=== PATIENT | male | born 1985 | race Caucasian/White ===

== ENCOUNTER 2024-03-08 16:51 | Inpatient (IN) | payer BC, MEDICAID ==
[2024-03-08] MEDS ORDERED: HALOPERIDOL LACTATE 5 MG/ML 1 ML VIAL IM PRN (17:09)
[2024-03-08] MEDS ORDERED: MAGNESIUM HYDROXIDE 2,400 MG/30 ML CUP PO PRN (17:09)
[2024-03-08] MEDS ORDERED: traZODone HCL 50 MG TAB PO PRN (17:09)
[2024-03-08] MEDS ORDERED: LORazepam 2 MG/ML INJ IM PRN (17:09)
[2024-03-08] MEDS ORDERED: haloperidoL 5 MG TAB PO PRN (17:09)
[2024-03-08] MEDS ORDERED: MAG HYDROX/AL HYDROX/SIMETH 355 ML BOTTLE PO PRN (17:09)
--- NOTE | 2024-03-09 02:54 | P.CONS ---
History of Present Illness - Reason for Consult Consult date: 03/08/24 - History of Present Illness The patient is a 38-year-old male who was transferred to the facility from [facility] with the patient was brought in for auditory hallucinations and delusional behavior. The patient was seen in the mental health unit. He reports that he lives with his parents and has been using methamphetamine on and off for the past several years. He also reports smoking 1 pack of cigarettes daily. He denied any physical complaints and denied any chronic medical conditions. Denied experiencing chest discomfort, shortness breath, fever, chills, cough, nausea, vomiting, abdominal pain, diarrhea. Review of systems: Pertinent positives and negatives as discussed in HPI, a complete review of systems was performed and all other systems are negative. Physical examination: General: non toxic, no distress, appears at stated age, obese Derm: no unusual rashes/lesions, no unusual ecchymoses, warm, dry Head: atraumatic, normocephalic, symmetric Eyes: EOMI, no lid lag, anicteric sclera ENT: Nose and ears atraumatic, no thrush, no pharyngeal erythema Neck: trachea midline, supple Mouth: no lip lesion, mucus membranes moist Cardiovascular: S1S2 reg, no murmur, no edema Lungs: CTA bilateral, no rhonchi, no rales , no accessory muscle use Abdominal: soft, nontender to palpation, no guarding Ext: no gross muscle atrophy, no contractures, Neuro: No gross focal neuro deficits noted Psych: Alert, oriented, appropriate affect Assessment: Methamphetamine abuse Tobacco abuse Psychosis Plan: Strongly advised on the importance of cessation from substance use Defer management of psychosis to primary psychiatry service Thank you for allowing us to participate in the care of this patient. We will follow peripherally. Do not hesitate to contact us with questions. Someone can be reached from the [facility] hospitalist group at all hours of the day at [phone]. Past Medical History Additional Past Medical History / Comment(s): ADHD, hx hep C History of Any Multi-Drug Resistant Organisms: None Reported Past Surgical History: No Surgical Hx Reported Past Psychological History: ADD/ADHD, Depression, Schizophrenia Smoking Status: Current every day smoker Past Alcohol Use History: None Reported Past Drug Use History: IV Drug Use, Methamphetamine Additional Drug Use History / Comment(s): daily use Medications and Allergies Home Medications Medication Instructions Recorded Confirmed Type No Known Home Medications 03/09/24 03/09/24 History Allergies Allergy/AdvReac Type Severity Reaction Status Date / Time No Known Allergies Allergy Verified 03/08/24 17:09 Physical Exam Vitals: Vital Signs Temp Pulse Resp Pulse Ox 03/08/24 21:36 98.8 F 75 18 97 Intake and Output 03/08/24 03/08/24 03/09/24 14:59 22:59 06:59 Other: Weight 87.46 kg 87.46 kg
[2024-03-09] MEDS ORDERED: INFLUENZA VACC (6 MOS-64 YRS) 45 MCG/0.5 ML SYRINGE IM ONE (03:12)
[2024-03-09 07:01] VITALS: RESP 16
[2024-03-09 07:55] LABS: Basophils % (A) 1 %; Eosinophils # (A) 0.3 k/uL (0-0.7); Eosinophils % (A) 6 %; HCT 44.7 % (39.0-53.0); Lymphocytes # (A) 1.6 k/uL (1.0-4.8); Lymphocytes % (A) 32 %; MCHC 33.5 g/dL (31.0-37.0); MCV 89.5 fL (80.0-100.0); Mean Platelet Volume 7.7; Monocytes # (A) 0.3 k/uL (0-1.0); Monocytes % (A) 6 %; Neutrophils # (A) 2.8 k/uL (1.3-7.7); Neutrophils % (A) 55 %; Platelet Count 304 k/uL (150-450); RDW 13.6 % (11.5-15.5)
[2024-03-09 08:12] LABS: ALT 14 U/L (4-49); AST 17 U/L (17-59); African American GFR (CKD) >90 (>60 ml/min/1.73 sqM); Albumin 4.1 g/dL (3.5-5.0); Alkaline Phosphatase 74 U/L (38-126); Anion Gap 7 mmol/L; Bilirubin, Delta 0.1 mg/dL (0.0-0.2); Bilirubin,Unconjugated 0.4 mg/dL (0.0-1.1); Blood Urea Nitrogen 18 mg/dL (9-20); Calcium 9.2 mg/dL (8.4-10.2); Carbon Dioxide 24 mmol/L (22-30); Chloride 109 mmol/L (98-107); Glucose 91 mg/dL (74-99); Non-African American GFR(CKD) >90 (>60 ml/min/1.73 sqM); Potassium 4.5 mmol/L (3.5-5.1); Sodium 140 mmol/L (137-145); Total Bilirubin 0.5 mg/dL (0.2-1.3); Total Protein 7.1 g/dL (6.3-8.2)
[2024-03-09] MEDS: NICOTINE 14MG/24HR PATCH TRANSDERM SCH (09:38)
[2024-03-09] MEDS: INFLUENZA VACC (6 MOS-64 YRS) 45 MCG/0.5 ML SYRINGE IM ONE (11:31)
--- NOTE | 2024-03-09 11:45 | P.HP ---
Psychiatric H&P - . H&P Date: 03/09/24 History & Physical: Allergies Allergy/AdvReac Type Severity Reaction Status Date / Time No Known Allergies Allergy Verified 03/08/24 17:09 Vital Signs Temp 97.7 F 03/09/24 06:19 Pulse 62 03/09/24 06:19 Resp 16 03/09/24 06:19 BP 124/70 03/09/24 06:19 Pulse Ox 95 03/09/24 06:19 FiO2 Intake & Output 03/08/24 03/09/24 03/09/24 18:59 06:59 18:59 Weight 78 kg 87.46 kg Laboratory Last Values WBC 5.0 k/uL (3.8-10.6) 03/09/24 07:25 RBC 5.00 m/uL (4.30-5.90) 03/09/24 07:25 Hgb 15.0 gm/dL (13.0-17.5) 03/09/24 07:25 Hct 44.7 % (39.0-53.0) 03/09/24 07:25 MCV 89.5 fL (80.0-100.0) 03/09/24 07:25 MCH 30.0 pg (25.0-35.0) 03/09/24 07:25 MCHC 33.5 g/dL (31.0-37.0) 03/09/24 07:25 RDW 13.6 % (11.5-15.5) 03/09/24 07:25 Plt Count 304 k/uL (150-450) 03/09/24 07:25 MPV 7.7 03/09/24 07:25 Neutrophils % 55 % 03/09/24 07:25 Lymphocytes % 32 % 03/09/24 07:25 Monocytes % 6 % 03/09/24 07:25 Eosinophils % 6 % 03/09/24 07:25 Basophils % 1 % 03/09/24 07:25 Neutrophils # 2.8 k/uL (1.3-7.7) 03/09/24 07:25 Lymphocytes # 1.6 k/uL (1.0-4.8) 03/09/24 07:25 Monocytes # 0.3 k/uL (0-1.0) 03/09/24 07:25 Eosinophils # 0.3 k/uL (0-0.7) 03/09/24 07:25 Basophils # 0.0 k/uL (0-0.2) 03/09/24 07:25 Sodium 140 mmol/L (137-145) 03/09/24 07:25 Potassium 4.5 mmol/L (3.5-5.1) 03/09/24 07:25 Chloride 109 mmol/L (98-107) H 03/09/24 07:25 Carbon Dioxide 24 mmol/L (22-30) 03/09/24 07:25 Anion Gap 7 mmol/L 03/09/24 07:25 BUN 18 mg/dL (9-20) 03/09/24 07:25 Creatinine 0.93 mg/dL (0.66-1.25) 03/09/24 07:25 Est GFR (CKD-EPI)AfAm >90 (>60 ml/min/1.73 sqM) 03/09/24 07:25 Est GFR (CKD-EPI)NonAf >90 (>60 ml/min/1.73 sqM) 03/09/24 07:25 Glucose 91 mg/dL (74-99) 03/09/24 07:[address] Glu mg/dL 114 mg/dL 03/09/24 07:25 Hemoglobin A1c 5.6 % (<=6.0) 03/09/24 07:25 Calcium 9.2 mg/dL (8.4-10.2) 03/09/24 07:25 Total Bilirubin 0.5 mg/dL (0.2-1.3) 03/09/24 07:25 Conjugated Bilirubin 0.0 mg/dL (0.0-0.3) 03/09/24 07:25 Unconjugated Bilirubin 0.4 mg/dL (0.0-1.1) 03/09/24 07:25 Delta Bilirubin 0.1 mg/dL (0.0-0.2) 03/09/24 07:25 AST 17 U/L (17-59) 03/09/24 07:25 ALT 14 U/L (4-49) 03/09/24 07:25 Alkaline Phosphatase 74 U/L (38-126) 03/09/24 07:25 Total Protein 7.1 g/dL (6.3-8.2) 03/09/24 07:25 Albumin 4.1 g/dL (3.5-5.0) 03/09/24 07:25 TSH 1.630 mIU/L (0.465-4.680) 03/09/24 07:25 03/09/24 11:30 IDENTIFYING DATA: Patient is a 38-year-old single male, unemployed and living with parents CHIEF COMPLAINT: Auditory hallucinations, depression HPI: Patient presented to an outside hospital with mental health concerns. Petition written by police department secretary states "Misty suffers from paranoid schizophrenia, was hearing voices, shouting and angry at parents. Misty is delusional and stated he took his medicine but parents that he may not have." Clinical certificate revealed, "patient presents to the ER for paranoid delusions and auditory hallucinations. He is not compliant with psychiatric treatment. Patient lacks insight into all mental health needs." Patient seen and evaluated on the unit and was agreeable with speaking to jingle writer in office. He states being here due to suffering from auditory hallucinations and depression for the past month. He was unable to describe any triggers or stressors however of note patient's UDS was positive for amphetamines. Patient reports experiencing low mood, anhedonia, low energy and poor concentration however denied any sleep or appetite changes. He reports a 1 year history of IV meth use and is reporting withdrawal symptoms described as irritability and fatigue. Patient denies any suicidal or homicidal ideations intent or plan. At this time patient denies any auditory or visual hallucinations. He reports only experiencing auditory hallucinations while at home however states that things are well at home with his parents, no stressors. Patient denies any flight of ideas racing thoughts and increased in goal directed behavior. Patient admits to using meth daily and smoking 10 cigarettes/day. He appears precontemplative as he is not interested in receiving help for his meth use. PAST PSYCHIATRIC HISTORY: Patient has a history of methamphetamine use. Patient denies being on any psychiatric medications. He has tried several psychotropic medications including Prolixin, Abilify, Zyprexa, Remeron, Wellbutrin, Prozac, Depakote, lithium, Trileptal. He reports 5 inpatient hospitalizations, most recent a few months back at [facility]. Patient denies any psychiatric outpatient follow-up. He reports 1 previous suicide attempt roughly 3 months ago via hanging that was aborted PMH: as per ER note ALLERGIES: as per EMR SUBSTANCE USE HISTORY: Patient reports using meth IV daily and smoking cigarettes daily but denies any alcohol use with rare cannabis use. FAMILY PSYCHIATRIC/SUBSTANCE USE HISTORY: Patient reports his sister has depression but denies any family history of substance use or suicide attempts SOCIAL HISTORY: Patient lives in [place] with his parents. He is single and has no children. He completed school up to the ninth grade and is unemployed. MENTAL STATUS EXAM: General Appearance: Patient appears to be stated age is alert, directable, and attempts to cooperate. Patient appears to have poor hygiene and grooming. Behavior: Patient is seated without any agitated behavior. Speech: Patient's speech is fluent and nonpressured. Mood/Affect: Patient reports their mood is depressed, affect is congruent and constricted. Suicidality/Homicidality: Patient denies having any homicidal ideation intent or plan. Denies any suicidal ideations intent or plan Perceptions: Patient denies any visual hallucinations and denies any auditory hallucinations Though content/process: There is no evidence of any delusional thought content and thought process is linear Memory and concentration: AOX3, grossly intact for the purposes of this session. Can spell "WORLD" backwards Judgment and insight: Poor STRENGTHS/WEAKNESSES: strength is that patient is resilient however uses meth da lida. Weakness is that patient has poor judgment and is impulsive INTELLECT: Below average IMPRESSIONS: Psychosis, unspecified, likely substance-induced Depression, unspecified Methamphetamine use disorder, severe in withdrawal Nicotine dependence PLAN: -Patient is admitted under voluntary status to [facility]HU for stabilization of psychiatric symptoms and safety. Patient has signed adult voluntary form and medication consent and is placed in patient's chart. -Medications : Start Invega 3 mg at bedtime for psychosis, Zoloft 50 mg daily for depression, trazodone 50 mg at bedtime for sleep -Ativan and Haldol PRN for agitation/aggression -Patient was counselled on substance abuse and desired to cut back on use-Will offer patient subtance use rehab -Patient was informed of the risks, benefits and side effects of the medication and patient verbally consented to taking the medications. Patient signed med consent form and was placed in chart. -Internal Medicine consult to perform medical evaluation and physical. -NRT -nicotine patch -SW on board for discharge planning. Encourage patient to participate in groups to work on coping skills. 03/09/24 11:38
[2024-03-09] MEDS: SERTRALINE 50 MG TAB PO SCH (11:49)
[2024-03-09] MEDS: IBUPROFEN 600 MG TAB PO PRN (14:56)
[2024-03-09 16:05] LABS: Chol/HDL Ratio 3.26 Ratio; LDL Cholesterol,Calculated 85.8 mg/dL (0.0-131.0)
[2024-03-09] MEDS: LORazepam 1 MG TAB PO PRN (16:25)
[2024-03-09] MEDS: traZODone HCL 50 MG TAB PO SCH (20:15)
[2024-03-09] MEDS: PALIPERIDONE 3 MG TAB.ER.24 PO SCH (20:15)
[2024-03-10 06:57] VITALS: BP 107/70; PULSE 87; TEMP 97.9
--- NOTE | 2024-03-10 12:31 | P.PN ---
Progress Note - Text Progress Note Date: 03/10/24 Interval History: Patient was seen laying in bed and was directable and agreeable to speak with handbook writer in the office. Patient notably has been isolative to room throughout his stay, not attending groups. He reports feeling "okay" today. He states his withdrawal symptoms have improved and that he is sleeping and eating okay. Specifically he reports feeling better today and that his mood and attitude are both better. He is still agreeable with transitioning to long-acting injectable. At this time patient denies any suicidal or homicidal ideations, intent or plan. Patient denies any auditory, visual hallucinations and denies any paranoia or delusions. Patient denies any side effects from the medications and has been compliant with meds. Mental Status Exam: General Appearance: Patient appears to be stated age is alert, directable, and cooperative. Behavior: Patient is calmly seated without any agitated behavior. Speech: Patient's speech is fluent and nonpressured. Mood/Affect: Mood is "okay", affect is congruent and constricted. Suicidality/Homicidality: Patient denies having any suicidal or homicidal ideation intent or plan. Perceptions: Patient denies any visual hallucinations and denies any auditory hallucinations Though content/process: There is no evidence of any delusional thought content and thought process is linear and goal-directed. Memory and concentration: AOX3, grossly intact for the purposes of this session Judgment and insight: Improving mildly Assessment Psychosis, unspecified, likely substance-induced Depression, unspecified Methamphetamine use disorder, severe Nicotine dependence Plan: -Patient continues to meet criteria for inpatient psychiatric admission for symptom stabilization and safety. Patient has signed adult voluntary form and medication consent and was placed in patient's chart. -Medications: Increase Invega to 6 mg at bedtime for psychosis with a plan to transition to Invega Sustenna tomorrow, continue Zoloft 50 mg daily for depression, trazodone 50 mg at bedtime for insomnia -When necessary Ativan and Haldol for agitation/aggression. -Labs: Reviewed, labs within normal limits -NRT -nicotine patch -SW on board for discharge planning. Encouraged the patient to participate in milieu. Anticipate discharge home on after receiving first loading dose of Invega sustenna
[2024-03-10] MEDS: PALIPERIDONE 6 MG TAB.ER.24 PO SCH (20:30)
[2024-03-11] MEDS: PALIPERIDONE IM 234 MG/1.5 ML SYG IM ONE (13:18)
--- NOTE | 2024-03-11 13:18 | P.PN ---
Progress Note - Text Progress Note Date: 03/11/24 Interval History: Patient was seen wandering the halls and was directable and agreeable to speak with greeting card writer in the office. He states feeling well today. Patient was encouraged to attend groups to which he agreed. He denied any paranoia and rated his depression and anxiety both low today. He states he will return home with his mother upon discharge and that he feels as though he is ready however is not interested in rehab at this time. He is agreeable with transitioning to Invega Sustenna today. At this time patient denies any suicidal or homicidal ideations, intent or plan. Patient denies any auditory, visual hallucinations and denies any paranoia or delusions. Patient denies any side effects from the medications and has been compliant with meds. Mental Status Exam: General Appearance: Patient appears to be stated age is alert, directable, and cooperative. Behavior: Patient is calmly seated without any agitated behavior. Speech: Patient's speech is fluent and nonpressured. Mood/Affect: Mood is "ok", affect is congruent and constricted. Suicidality/Homicidality: Patient denies having any suicidal or homicidal ideation intent or plan. Perceptions: Patient denies any visual hallucinations and denies any auditory hallucinations Though content/process: There is no evidence of any delusional thought content and thought process is linear and goal-directed. Memory and concentration: AOX3, grossly intact for the purposes of this session Judgment and insight: Improving mildly Assessment Psychosis, unspecified, likely substance-induced Depression, unspecified Methamphetamine use disorder, severe Nicotine dependence Plan: -Patient continues to meet criteria for inpatient psychiatric admission for symptom stabilization and safety. Patient has signed adult voluntary form and medication consent and was placed in patient's chart. -Medications: First loading dose of Invega Sustenna 234 mg IM to be given today with second loading dose of 156 mg IM to be given at [facility]. Continue Invega to 6 mg at bedtime for psychosis, Zoloft 50 mg daily for depression, trazodone 50 mg at bedtime for insomnia -When necessary Ativan and Haldol for agitation/aggression. -Labs: Reviewed, labs within normal limits -NRT -nicotine patch -SW on board for discharge planning. Encouraged the patient to participate in milieu. Anticipate discharge home on tomorrow, mom confirmed no firearms at home
[2024-03-11] MEDS: ACETAMINOPHEN TAB 325 MG TAB PO PRN (15:19)
--- NOTE | 2024-03-12 12:26 | P.DS ---
Providers Date of admission: 03/08/24 21:36 Expected date of discharge: 03/12/24 Attending physician: Mica Wolff MD Consults: 03/08/24 17:09 Consult Physician Routine Consulting Provider: Christie Cuello Consult Reason/Comments: Medical H&P Do you want consulting provider notified?: Yes Primary care physician: Stated None - Discharge Diagnosis(es) (1) Unspecified psychosis Current Visit: Yes Status: Acute Priority: High (2) Depression, unspecified Current Visit: Yes Status: Acute Priority: High (3) Methamphetamine use disorder, severe Current Visit: Yes Status: Acute (4) Nicotine dependence Current Visit: Yes Status: Acute Priority: Low Hospital Course: Admission HPI: Admission note was completed by service writer advisor "Patient presented to an outside hospital with mental health concerns. Petition written by police magistrate states "Misty suffers from paranoid schizophrenia, was hearing voices, shouting and angry at parents. Misty is delusional and stated he took his medicine but parents that he may not have." Clinical certificate revealed, "patient presents to the ER for paranoid delusions and auditory hallucinations. He is not compliant with psychiatric treatment. Patient lacks insight into all mental health needs." Patient seen and evaluated on the unit and was agreeable with speaking to service writer advisor in office. He states being here due to suffering from auditory hallucinations and depression for the past month. He was unable to describe any triggers or stressors however of note patient's UDS was positive for amphetamines. Patient reports experiencing low mood, anhedonia, low energy and poor concentration however denied any sleep or appetite changes. He reports a 1 year history of IV meth use and is reporting withdrawal symptoms described as irritability and fatigue. Patient denies any suicidal or homicidal ideations intent or plan. At this time patient denies any auditory or visual hallucinations. He reports only experiencing auditory hallucinations while at home however states that things are well at home with his parents, no stressors. Patient denies any flight of ideas racing thoughts and increased in goal directed behavior. Patient admits to using meth daily and smoking 10 cigarettes/day. He appears precontemplative as he is not interested in receiving help for his meth use." Hospital course: Upon admission to the unit patient was directable and agreeable to commence treatment and signed adult voluntary form. Patient got along well with other patients on the unit and followed unit protocol. Patient was compliant with the medications and denied any side effects throughout hospital course. Patient was started on Invega and this was increased to 6 mg at bedtime for psychosis, Zoloft 50 mg daily for depression, trazodone 50 mg at bedtime for insomnia. Patient was agreeable with transitioning to FALCON and received the first loading dose of Invega Sustenna 234 mg IM on 03/11. Patient is to receive the second loading dose of Invega Sustenna 156 mg IM with then 3-5 days after the first loading dose with his [facility] outpatient. Patient to be maintained on Invega Sustenna 117 mg IM every 4 weeks from the second loading dose and patient was encouraged to continue oral Invega until then. Patient spoke of his stressors and engaged in therapy both group and individual. Patient was also seen by medical team for history and physical exam. Throughout the course of the hospitalization patient gradually improved with regards to mood, anxiety, sleep and returned back to their baseline level of functioning. On the day of discharge patient denied any suicidal or homicidal ideations intent or plan denied any auditory or visual hallucinations. The patient denied any access to guns or weapons. Patient denied any paranoia and did not endorse any delusions. Patient does have a significant history of substance abuse and was counseled on abstaining from all substances including alcohol and marijuana. Patient was offered however declined inpatient substance-abuse rehab. Patient was strongly encouraged to discontinue his IV meth use and to become aware of triggers and utilize healthier coping skills. Patient was also counseled on the medications and need for regular compliance and was encouraged to follow-up with their outpatient appointment for mental health and also for primary care. Prior to discharge a family meeting will be arranged by social media strategist to answer any questions and ensure safety upon discharge incuding making sure that guns/weapons are either removed from the home or locked away. Patient to be discharged home with mom with [facility] follow-up Mental status exam: General Appearance: Patient appears to be stated age is alert, pleasant, and cooperative. Patient is in no acute distress and has improved hygiene and gr ooming Behavior: Patient is calmly seated without any agitated behavior. Speech: Patient's speech is fluent and nonpressured. Mood/Affect: Patient reports their mood is "good", affect is congruent and euthymic. Suicidality/Homicidality: Patient denies having any suicidal or homicidal ideation intent or plan. Perceptions: Patient denies any auditory or visual hallucinations. Though content/process: There is no evidence of any delusional thought content and thought process is linear and goal-directed. Memory and concentration: AOX3, grossly intact for the purposes of this session. Can spell "WORLD" backwards correctly. Judgment and insight: Chronically poor, however has improved with guarded prognosis Impression: Psychosis, unspecified, likely substance-induced Depression, unspecified Methamphetamine use disorder, severe Nicotine dependence Plan: -Continue with discharge today as patient has improved and stabilized psychiatrically and is not currently an imminent threat to themself and/or others. Patient will remain at chronically elevated risk for harm to self and/or others due to their impulsivity and substance abuse. -Continue medications: Invega 6 mg at bedtime until patient receives second loading dose of Invega Sustenna 156 mg IM from his [facility]. Patient to be maintained on Invega Sustenna 117 mg IM every 4 weeks. Zoloft 50 mg daily, trazodone 50 mg at bedtime -Patient was counseled on the need for medication compliance and appropriate follow-up at mental health and also primary care for medical issues. Patient verbalized understanding and agreed. -Social work to [help coordinate patients discharge today. also to ensure safe home environment that guns/weapons are either removed from the home or locked away. Social work also to arrange for patients follow up appointments with [facility] for psychiatric care along with follow up with primary care provider. -Patient counseled on abstaining from recreational drugs and marijuana and alcohol. Was informed/educated on the adverse effects on their physical and mental health. Patient verbally agreed and understood. Patient was offered substance abuse treatment however declined at this time. -Patient was instructed to return to the hospital or seek immediate medical care if their psychiatric or medical symptoms do worsen or reoccur. Abnormal Labs 03/09/24 07:25 Chloride 109 H Vital Signs Temp 97.9 F 03/10/24 06:23 Pulse 87 03/10/24 06:23 Resp 16 03/10/24 06:23 BP 107/70 03/10/24 06:23 Pulse Ox 98 03/10/24 06:23 FiO2 Allergies Allergy/AdvReac Type Severity Reaction Status Date / Time No Known Allergies Allergy Verified 03/08/24 17:09 Patient Condition at Discharge: Stable Plan - Discharge Summary Discharge Rx Participant: Yes New Discharge Prescriptions: New traZODone HCL [Desyrel] 50 mg PO HS 30 Days #30 tab Nicotine 14Mg/24Hr Patch [Habitrol] 1 patch TRANSDERM DAILY patch Paliperidone [Invega] 6 mg PO HS 14 Days #14 tab Sertraline [Zoloft] 50 mg PO DAILY 30 Days #30 tab Discharge Medication List Nicotine 14Mg/24Hr Patch [Habitrol] 1 patch TRANSDERM DAILY patch 03/12/24 [Rx] Paliperidone [Invega] 6 mg PO HS 14 Days #14 tab 03/12/24 [Rx] Sertraline [Zoloft] 50 mg PO DAILY 30 Days #30 tab 03/12/24 [Rx] traZODone HCL [Desyrel] 50 mg PO HS 30 Days #30 tab 03/12/24 [Rx] Follow up Appointment(s)/Referral(s): [facility] [Other] - 03/13/24 1:00 pm [facility], [facility] [Other] - 1 Week Patient Instructions/Handouts: Depression (DC), Brief Psychotic Disorder (DC) Activity/Diet/Wound Care/Special Instructions: Avoid the use of street drugs and alcohol. Take all medications as prescribed. When you are in need of refills on your medications, please contact your medical provider and/or outpatient psychiatrist/provider to have this done. Please go to your scheduled outpatient appointment for aftercare treatment. If symptoms return or become worse, call the crisis line at and/or go to the nearest emergency room for evaluation. National Suicide Hotline 982 Discharge Disposition: HOME SELF-CARE
== END 2024-03-12 12:10 | disposition home or self-care (01) | DRG 750 ==
LOC: 3MHU 21:36
PROVIDERS: ADMIT Psychiatry & Neurology Psychiatry; ATTEND Psychiatry & Neurology Psychiatry
DX: F20.0 Paranoid schizophrenia (principal); F15.23 Other stimulant dependence with withdrawal; F32.A Depression, unspecified; F17.210 Nicotine dependence, cigarettes, uncomplicated; Z56.0 Unemployment, unspecified; Z81.8 Family history of other mental and behavioral disorders
CPT/HCPCS: 80053; 80061; 82248; 83036; 84443; 85025; 90656